=== PATIENT | female | born 1955 | race Caucasian/White ===

== ENCOUNTER → 2024-11-28 | Outpatient (CLI) | payer OTHER, SELFPAY ==
[2024-11-28 14:25] LABS: Amphetamine/Methamp Scrn,U Negative (Negative); Barbiturate Screen,Urine Negative (Negative); Benzodiazepines Screen,Urine Negative (Negative); Benzoylecgonine Screen, Ur Negative (Negative); Fentanyl Screen,Urine Negative (Negative); Opiate Screen,Urine Positive (Negative); THC Screen,Urine Negative (Negative)
== END | disposition home or self-care (01) ==
LOC: SLDO 13:22
PROVIDERS: PCP Family Medicine; Referring Provider Family Medicine; Visit Provider Family Medicine
DX: Z71.51 Drug abuse counseling and surveillance of drug abuser (principal)
CPT/HCPCS: 80307

== ENCOUNTER 2025-02-06 17:15 | Emergency (ER) | payer OTHER, SELFPAY ==
[2025-02-06 18:32] VITALS: BP 123/82; PULSE 83; RESP 18; TEMP 36.6; O2SAT 99; BMI 28.8
--- NOTE | 2025-02-06 18:49 | XR_ITS ---
Examination: CT maxillofacial, without intravenous contrast. 2-D sagittal reconstructions. 3-D reconstructions. Date and time of exam:February 06, 2025 1956 hrs. Indications: Patient fell today with injury to the face, facial pain CTDI: vol (mGy):20.9 DLP: (mGycm):470): Technique: Multiple axial images of maxillofacial region, 3.0 mm slice thickness. 2-D sagittal and coronal reconstructions. 3-D reconstructions. Low dose protocols were performed. One or more of the following dose reduction techniques were used; automated exposure control, adjustment of the mA and/or KV according to patient size, use of iterative reconstruction technique. Findings: Frontal bone intact Orbital rims intact Soft tissue swelling right frontal scalp No nasal bone fracture No depression zygomatic arches Pterygoid plates pedicles are intact Impression: No acute facial fracture.
--- NOTE | 2025-02-06 18:49 | XR_ITS ---
Examination: Right elbow 3 views Technique: Elbow AP, oblique, lateral 3 views Exam date and time: February 06, 2025 1703 hrs. Indications: Patient fell today with into the elbow, elbow pain. Findings: No acute fracture. No dislocation No foreign body Impression: No acute fracture.
--- NOTE | 2025-02-06 18:49 | XR_ITS ---
Examination: Knee, left , 3 views Technique: Knee AP, lateral, oblique 3 views Date and time of exam: February 06, 2025 1818 hrs. Indications: Patient fell today with injury to the knee, knee pain. Findings: Prominent osteopenia. No fracture. Small knee effusion. Moderate narrowing medial joint space Impression: No acute fracture
--- NOTE | 2025-02-06 18:49 | XR_ITS ---
Examination: CT cervical spine without contrast 2-D sagittal reconstructions 2-D coronal reconstructions 3-D reconstructions. Exam date and time:February 10, 2025 1953 hrs. Indications: Patient fell today with injury to the neck, neck pain CTDI:vol (mGy) 23 DLP: (mGycm) 290 Technique: Multiple 2 mm axial sections of the cervical spine have been obtained. The coronal and sagittal reconstructions have been obtained. 3-D reconstructions have been obtained. Low dose protocols were performed. One or more of the following dose reduction techniques were used; automated exposure control, adjustment of the mA and/or KV according to patient size, use of iterative reconstruction technique. Findings: Axial sections demonstrate intact base of the skull. C1 exhibit satisfactory relationship to the odontoid. No acute cervical vertebral body fracture seen. Alignment posterior spinous processes satisfactory. Impression: No acute cervical fracture.
--- NOTE | 2025-02-06 18:49 | XR_ITS ---
Examination: CT brain head without contrast. 2-D sagittal coronal reconstructions Date and time of exam:February 06, 20251952 Indications: Patient fell today with into the head, right-sided head pain CTDI: vol (mGy):47.7 DLP: (mGycm):919 Technique: Multiple CT axial sections of the brain have been obtained, 5 mm slice thickness. Contrast has not been administered. 2-D sagittal, coronal reconstructions have been obtained Low dose protocols were performed. One or more of the following dose reduction techniques were used; automated exposure control, adjustment of the mA and/or KV according to patient size, use of iterative reconstruction technique. Findings: No significant ventricular enlargement. Intra-axial or extra-axial hemorrhage density is not seen. No mass effect or midline shift Basal cisterns are not remarkable. Fourth ventricle is midline. Cranial vault intact. Impression: Negative for acute hemorrhage, mass effect or midline shift
[2025-02-06] MEDS: HYDROcodone/APAP 5/325 TABLET 1 TAB PO (20:06)
--- NOTE | 2025-02-06 20:40 | PD.EDHEAD ---
ED Head Injury RME/HPI General Chief complaint: Head Injury Stated complaint: FALL: HEAD INJURY Time Seen by Provider: 02/06/25 18:49 Arrival date/time: 02/06/25 17:15 70F with history of HTN and psych presents to ED with head, R elbow, and R knee pain after trip and fall. Patient denies LOC, AMS, seizures, N/V, and vision changes. Limitations: no limitations Related Data Home Medications ?Medication ?Instructions ?Recorded ?Confirmed lisinopril 20 mg tablet 20 mg PO HS #0 tabs 09/06/14 08/31/21 lorazepam 2 mg tablet 2 mg PO HSPRN PRN ANXIETY #0 tabs 09/06/14 08/31/21 Hydrocodone/Acetaminophen * (NORCO 2 tab PO Q4H PRN PAIN #0 tabs 02/24/16 08/31/21 5/325 *) albuterol sulfate 90 mcg/actuation 2 puff inhalation Q4H PRN Cough 08/31/21 08/31/21 aerosol inhaler (Ventolin HFA) metformin 500 mg tablet 1,000 mg PO BID 08/31/21 08/31/21 sertraline 100 mg tablet 500 mg PO BID 08/31/21 08/31/21 Allergies Allergy/AdvReac Type Severity Reaction Status Date / Time propylene glycol Allergy Unknown RASH Verified 02/06/25 17:18 (INGREDIENT IN LOTION) Adhesives Allergy Mild Rash Uncoded 02/06/25 17:18 Review of Systems Review of Systems Systems Reviewed: All systems reviewed, normal except as documented Constitutional Constitutional: Reports system reviewed and no additional complaints, except as documented, Reports as per HPI, Denies fever(s) and Reports headache(s) (pain) ENT Ears, Nose, Mouth, and Throat: Denies disequilibrium and Reports headache(s) (pain) Cardiovascular Cardiovascular: Reports system reviewed and no additional complaints, except as documented, Denies chest pain and Denies dyspnea Respiratory Respiratory: Reports system reviewed and no additional complaints, except as documented, Denies cough and Denies dyspnea Gastrointestinal Gastrointestinal: Reports system reviewed and no additional complaints, except as documented, Denies abdominal pain, Denies nausea and Denies vomiting Musculoskeletal Musculoskeletal: Reports as per HPI and Reports arthralgias Neurologic Neurologic: Reports system reviewed and no additional complaints, except as documented, Denies confusion, Denies disequilibrium and Reports headache(s) (pain) Psychiatric Psychiatric: Denies confusion Past Medical History Past Medical History NEUROLOGIC: Negative Seizures CARDIAC: Positive Hypertension; Negative Congestive Heart Failure RESPIRATORY: Negative Chronic Obstructive Pulmonary Disease (COPD) GENITOURINARY: Negative Renal Disease MUSCULOSKELETAL: Positive Carpal Tunnel Syndrome (Bilateral) ENDOCRINE: Positive Diabetes Mellitus Type 2; Negative Diabetes Mellitus Type 1 PSYCHO/SOCIAL: Positive Anxiety OTHER HISTORY: Positive Chicken Pox, Mumps and Rubella (Greek Measles); Negative Blood Transfusions, Blood Transfusion Reaction or Anesthesia Reactions Surgical History SURGICAL: Positive Eye Surgery and Hysterectomy Social History SMOKING STATUS: Never smoker ED Exam General Limitations: Present no limitations General appearance: Present alert and in no apparent distress Head Head exam: Present atraumatic Eye Eye exam: Present normal appearance, PERRL and EOMI ENT ENT exam: Present normal exam, normal oropharynx and mucous membranes moist Neck Neck exam: Present normal inspection, full ROM and trachea midline Chest Chest inspection: Present normal inspection and symmetric chest wall rise Respiratory Respiratory exam: Present normal lung sounds bilaterally Cardiovascular Cardiovascular exam: Present regular rate, normal rhythm and normal heart sounds Abdominal Exam Abdominal exam: Present soft and normal bowel sounds Extremities Exam Extremities exam: Present full ROM Expanded Upper Extremity Exam Elbow exam: Present full ROM (R) and tenderness Expanded Lower Extremity Exam Knee exam: Present full ROM (R) and tenderness Back Exam Back exam: Present normal inspection and full ROM Neurological Exam Neurological exam: Present alert, oriented X3 and CN II-XII intact Psychiatric Psychiatric exam: Present normal affect and normal mood Skin Skin exam: Present warm, dry, intact and normal color Course Quality Measures none Orders Category Date Time Status CT cervical spine wo con Stat Exams 02/06/25 18:[address] facial bones wo con Stat Exams 02/06/25 18:[address] head/brain wo con Stat Exams 02/06/25 18:49 Completed XR elbow comp RT min 3V Stat Exams 02/06/25 18:49 Completed XR knee RT 3V Stat Exams 02/06/25 18:49 Completed HYDROcodone*/APAP 5/325 [[place] 5/325] Med 02/06/25 19:46 Discontinued 1 tab PO X1 ONE Vital Signs Vital signs: Vital Signs Temperature 98 F 02/06/25 18:32 Pulse Rate 83 02/06/25 18:32 Respiratory Rate 18 02/06/25 18:32 Blood Pressure 123/82 02/06/25 18:32 Pulse Oximetry (%) 99 02/06/25 18:32 Oxygen Delivery Method Room Air 02/06/25 18:32 O2 at 99% on RA and WNLs Head Injury MDM Narrative MDM Narrative:: 70F with history of HTN and psych presents to ED with head, R elbow, and R knee pain after trip and fall. Patient denies LOC, AMS, seizures, N/V, and vision changes. Physical exam reveals R forehead hematoma. Normal pupil response and EOM. ENT clear. No neck tenderness. ROM intact. Mild R elbow and knee tenderness. ROM intact. Gait normal. Patient is afebrile, calm, and alert. XR and CT unremarkable. Patient data External records reviewed:: [facility] previous records Clinical information provided by:: patient Social determinants that could affect healthcare access:: none Patient has the following chronic illnesses:: none How is presenting disease/condition affected by chronic disease/condition?: no chronic disease Evaluation data The following diagnostics were reviewed and interpreted by me:: radiology exam(s) Lab and/or radiology exams considered but not ordered:: ordered Interpretation Summary: above Medications / Prescriptions Medications or Prescriptions considered but not ordered:: ordered Medication administrations:: Medication Administration History Discontinued Medications Hydrocodone Bitart/Acetaminophen (Hydrocodone/Apap 5/325 Tablet) 1 tab PO X1 ONE Stop: 02/06/25 19:47 Last Admin: 02/06/25 20:06 Dose: 1 tab Documented By: above Consultations Consultation(s) initiated? (list below): No Diagnosis Differential diagnosis head injury: concussion without loss of consciousness, epidural hematoma, closed head injury, subarachnoid hematoma, postconcussion syndrome, subdural hematoma and other (knee contusion fx, elbow contusion/fx, scalp hematoma) Most likely diagnosis given after review of the tests above:: knee contusion, elbow contusion, CHI, and scalp hematoma Admission Indicated Admission indicated?: not indicated Admission Request Was there a request for admission?: No Disposition Plan Disposition Plan: Discharge Discharge Attestation Discharge Attestation: The patient and all family members were given an opportunity to ask questions and understood the discharge instructions. Discharge instructions specifically effects, indications for sooner follow up or return to the emergency department, and the expected course of current diagnosis. Patient condition: Stable Discharge Plan Plan Patient Disposition: HOME (Self Care) Disposition Comment: Stable Prescriptions/Referrals Prescriptions/Med Rec: No Action merypril 20 MG tablet 20 mg PO HS Qty: 0 lorazepam 2 MG tablet 2 mg PO HSPRN PRN (Reason: ANXIETY) Qty: 0 Hydrocodone/Acetaminophen * (NORCO 5/325 *) 1 TAB tablet 2 tab PO Q4H PRN (Reason: PAIN) Qty: 0 metformin 500 mg tablet 1,000 mg PO BID sertraline 100 mg tablet 500 mg PO BID Patient Comments: TAKE 1 TABLET BY MOUTH ONCE DAILY FOR DEPRESSION albuterol sulfate [Ventolin HFA] 90 mcg/actuation HFA aerosol inhaler 2 puff INH Q4H PRN (Reason: Cough) Referrals: Andrew Taylor MD [Primary Care Provider] - In 1 week Problem List Clinical Impression: Closed head injury, Scalp hematoma, Contusion of knee, Contusion of elbow Patient/Caregiver Discharge Instructions Education Materials: ED Soft Tissue Contusion, ED Head Injury (Adult) Additional Instructions: Please follow-up with PCP within 24-48 hours and return immediately if symptoms worsen. If problem persists, recommend outpatient PT and/or MRI follow-up. In the meantime, rest, use ice/heat, and/or compression. Print Language: Italian Stand Alone Forms: Patient Portal Info Letter ALLEN/ARNAUD Supervising Physician ALLEN/ARNAUD Supervising Physician: Dr. Kiser
== END 2025-02-06 22:35 | disposition home or self-care (01) ==
PROVIDERS: Emergency Provider Emergency Medicine; PCP Family Medicine
DX: S00.03XA Contusion of scalp, initial encounter (principal); S80.01XA Contusion of right knee, initial encounter; S50.01XA Contusion of right elbow, initial encounter; W01.0XXA Fall on same level from slipping, tripping and stumbling without subsequent striking against object, initial encounter; I10 Essential (primary) hypertension
CPT/HCPCS: 70450; 70486; 72125; 73080; 73562; 99284; A9270

== ENCOUNTER → 2025-05-27 | Outpatient (CLI) | payer OTHER, SELFPAY ==
[2025-05-27 16:41] LABS: Glucose Estimated Average 105 mg/dL (80-131); Hemoglobin A1C 5.3 % Hgb (4.8-6.0)
== END | disposition home or self-care (01) ==
LOC: COPL 14:50
PROVIDERS: PCP Family Medicine; Referring Provider Family Medicine; Visit Provider Family Medicine
DX: E11.65 Type 2 diabetes mellitus with hyperglycemia (principal)
CPT/HCPCS: 36415; 83036

== ENCOUNTER → 2025-09-01 | Outpatient (CLI) | payer OTHER, SELFPAY ==
[2025-09-01 14:48] LABS: Basophils # (Auto) 0.1 Thou/mm3 (0.0-0.2); Basophils % (Auto) 1 % (0-2.5); Eosinophils # (Auto) 0.5 Thou/mm3 (0.0-0.5); Eosinophils % (Auto) 5 % (0-10); Hematocrit 37.5 % (36.0-46.0); Hemoglobin 12.5 g/dL (12.0-16.0); Immature Granulocytes Auto 0.03 Thou/mm3 (0.00-0.00); Lymphocytes # (Auto) 2.7 Thou/mm3 (1.0-4.8); Lymphocytes % (Auto) 28 % (10-50); Mean Corpuscular HGB Conc 33.3 g/dl (31.0-37.0); Mean Corpuscular Hemoglobin 29.0 pg (25.0-35.0); Mean Corpuscular Volume 87 fL (80-100); Monocytes # (Auto) 0.9 Thou/mm3 (0.0-0.8); Monocytes % (Auto) 9 % (0-12); Neutrophils # (Auto) 5.2 Thou/mm3 (1.8-7.7); Neutrophils % (Auto) 56 % (37-80); Nucleated Red Blood Cell # 0.00 Thou/mm3 (0.00-0.00); Nucleated Red Blood Cell % 0 /100 WBC (0); Platelet Count 240 Thou/mm3 (140-440); RDW Standard Deviation 41.1 fL (36.4-46.3); Red Blood Count 4.31 Miln/mm3 (4.00-5.20); White Blood Count 9.4 Thou/mm3 (3.6-11.0)
[2025-09-01 14:59] LABS: Amphetamine/Methamp Scrn,U Negative (Negative); Barbiturate Screen,Urine Negative (Negative); Benzodiazepines Screen,Urine Negative (Negative); Benzoylecgonine Screen, Ur Negative (Negative); Creatinine MALB Rnd Ur 129 mg/dL (30-125); Fentanyl Screen,Urine Negative (Negative); Microalbumin Creat Ratio 8 mg/gCrea (<30); Microalbumin, Random Urine 10 mg/L (0-300); Opiate Screen,Urine Negative (Negative); THC Screen,Urine Negative (Negative)
[2025-09-01 14:59] LABS: Alanine Aminotransferase 10 U/L (10-49); Albumin, Serum 4.8 gm/dL (3.4-4.8); Albumin/Globulin Ratio 2.2 (1.2-2.2); Alkaline Phosphatase 51 U/L (46-116); Anion Gap 9 (7-16); Aspartate Amino Transferase 21 U/L (0-34); BUN/Creatinine Ratio 12 Ratio (12-20); Bilirubin,Total 0.5 mg/dL (0.3-1.2); Blood Urea Nitrogen 14 mg/dL (9-23); Calcium 10.0 mg/dL (8.3-10.6); Calcium (Corrected) 10.0 mg/dL (8.5-10.1); Carbon Dioxide 26.7 mMol/L (20.0-31.0); Cardiac Risk Estimate 3.5 RATIO (3.7-5.6); Chloride 102 mMol/L (98-107); Cholesterol 210 mg/dL (132-200); Creatinine (Component) 1.2 mg/dL (0.6-1.3); Globulin 2.2 gm/dL (2.3-3.5); Glucose 119 mg/dL (74-106); HDL Cholesterol 60 mg/dL (40-60); LDL Cholesterol,Calculated 103 mg/dL (0-130); Osmolality,Calculated 277 (275-295); Potassium 4.0 mMol/L (3.4-5.1); Sodium 138 mMol/L (136-145); Total Protein 7.0 gm/dL (5.7-8.2); Triglycerides 235 mg/dL (30-150); eGFR 48 See Note
[2025-09-01 15:15] LABS: Glucose Estimated Average 108 mg/dL (80-131); Hemoglobin A1C 5.4 % Hgb (4.8-6.0)
== END | disposition home or self-care (01) ==
LOC: COPL 13:27
PROVIDERS: PCP Internal Medicine; Referring Provider Internal Medicine; Visit Provider Internal Medicine
DX: I10 Essential (primary) hypertension (principal); E11.65 Type 2 diabetes mellitus with hyperglycemia; F41.8 Other specified anxiety disorders; M54.50 Low back pain, unspecified
CPT/HCPCS: 36415; 80053; 80061; 80307; 82043; 82570; 83036; 85025

== ENCOUNTER → 2025-09-02 | Outpatient (CLI) | payer OTHER, SELFPAY ==
--- NOTE | 2025-09-02 16:00 | XR_ITS ---
Examination: CT left knee, without contrast. 2-D sagittal reconstructions. 2-D coronal reconstructions. 3-D reconstructions. Date and time of exam: September 02, 2025, 1558 hours INDICATIONS: Status post left knee arthroplasty, left knee pain and numbness radiating to the lower extremity post surgery 1 year ago CTDI: vol (mGy): 9.13 DLP: (mGycm): 270 Technique: Multiple 1.25 mm axial sections of the left knee without intravenous contrast have been obtained. 2-D sagittal and coronal reconstructions have been obtained. 3-D reconstructions have been obtained. Low dose protocols were performed. One or more of the following dose reduction techniques were used; automated exposure control, adjustment of the mA and/or KV according to patient size, use of iterative reconstruction technique. Findings: Distal femur femoral condyles intact Proximal tibia and fibula intact No patellar dislocation. No loosening of the prosthetic knee components No cortical bone destruction or findings of osteomyelitis Small knee effusion IMPRESSION: Total left knee arthroplasty, satisfactory alignment No loosening of the prosthetic components. No fractures. Negative for osteomyelitis. Small knee effusions
== END | disposition home or self-care (01) ==
PROVIDERS: PCP Internal Medicine; Referring Provider Family Medicine; Visit Provider Family Medicine
DX: M25.462 Effusion, left knee (principal); Z96.652 Presence of left artificial knee joint
CPT/HCPCS: 73700